=== PATIENT | male | born 1990 | race Asian ===

== ENCOUNTER 2016-09-25 12:10 | Emergency (ER) | payer OTHER ==
--- NOTE | 2016-09-25 12:40 | Emergency Department Report ---
Chief Complaint: Chest Pain Stated Complaint: CHEST PAIN Time Seen by Provider: 09/25/16 12:37 - HPI History of Present Illness: Patient is a 26 y/o male with h/o anxiety who presents due to chest pain x 6 days. Patient denies any SOB, he admits of having palpitations - ROS Review of Systems: no SOB - Exam Vital Signs: Vital Signs 09/25/16 12:17 Temperature 98 F Pulse Rate 97 H Respiratory 18 Rate Blood Pressure 129/88 O2 Sat by Pulse 100 Oximetry Physical Exam: NAD MSE screening note: Focused history and physical exam performed. Due to findings the following was ordered: ED Disposition for MSE Condition: Stable
--- NOTE | 2016-09-25 12:54 | XRay Report ---
ROUTINE CHEST, TWO VIEWS: HISTORY: chest pain. The trachea, heart, mediastinal contour, lung baird and bony thorax are unremarkable. IMPRESSION: Unremarkable chest x-ray.
[2016-09-25 13:10] LABS: Basophils % (Auto) 0.9 % (0.0-1.8); Eosinophils % (Auto) 0.3 % (0.0-4.3); Hematocrit 46.6 % (35.5-45.6); Hemoglobin 15.4 gm/dl (11.8-15.2); Mean Corpuscular HGB Conc 33 % (32-34); Mean Corpuscular Hemoglobin 28 pg (28-32); Mean Corpuscular Volume 84 fl (84-94); Platelet Count 246 K/mm3 (140-440); Red Blood Count 5.55 M/mm3 (3.65-5.03); Red Cell Distribution Width 14.7 % (13.2-15.2); White Blood Count 4.1 K/mm3 (4.5-11.0)
[2016-09-25 13:27] LABS: Creatine Kinase MB 1.3 ng/mL (0.0-4.0)
[2016-09-25 13:28] LABS: Alanine Aminotransferase 14 units/L (7-56); Albumin 4.4 g/dL (3.9-5); Albumin/Globulin Ratio 1.4 %; Alkaline Phosphatase 73 units/L (35-129); Anion Gap 18 mmol/L; BUN/Creatinine Ratio 18.75; Bilirubin,Total 1.1 mg/dL (0.1-1.2); Blood Urea Nitrogen 15 mg/dL (9-20); Calcium 9.3 mg/dL (8.4-10.2); Carbon Dioxide 27 mmol/L (22-30); Chloride 100.7 mmol/L (98-107); Creatine Kinase 64 units/L (55-170); Glucose 92 mg/dL (75-100); Lipase 152 units/L (13-60); Potassium 3.9 mmol/L (3.6-5.0); Sodium 142 mmol/L (137-145); Total Protein 7.6 g/dL (6.3-8.2)
--- NOTE | 2016-09-25 16:51 | Emergency Department Report ---
ED Chest Pain HPI - General Chief Complaint: Chest Pain Stated Complaint: CHEST PAIN Time Seen by Provider: 09/25/16 16:40 Source: patient Mode of arrival: Ambulatory Limitations: No Limitations - History of Present Illness Initial Comments: 26-year-old male presents to the emergency department complaining of chest pain. Patient reports left-sided chest pain that has been intermittent for the past 6 days. Patient describes a vague sensation in his chest that does not radiate. He reports associated palpitations, but denies shortness of breath, nausea, vomiting, diaphoresis, or dizziness. Patient reports a history of anxiety and states he takes Benadryl to help calm him down. He was concerned that the symptoms have been going on for several days longer than usual. At this time, the patient denies symptoms. There are no other complaints. MD Complaint: chest pain -: Gradual, days(s) (6) Onset: during rest Pain Location: left chest Pain Radiation: none Severity: mild Severity scale (0 -10): 2 Consistency: intermittent, now resolved Improves With: other (Benadryl) Worsens With: nothing re: denies: nausea, vomting, diaphoresis, dyspnea Other Symptoms: palpitations Treatments Prior to Arrival: none Aspirin use within the Past 7 Days: (0) No - Related Data Previous Rx's Medication Instructions Recorded Last Taken Type LORazepam [Ativan] 0.5 mg PO TID PRN #10 tablet 09/25/16 Unknown Rx Allergies Allergy/AdvReac Type Severity Reaction Status Date / Time No Known Allergies Allergy Unverified 09/25/16 12:22 KATERINE score - Katerine Score Age > 65: (0) No Aspirin use within the Past 7 Days: (0) No 3 or more CAD Risk Factors: (0) No 2 or more Angina events in past 24 hrs: (0) No Known CAD with more than 50% Stenosis: (0) No Elevated Cardiac Markers: (0) No ST Deviation Greater than 0.5mm: (0) No KATERINE Score: 0 ED Review of Systems ROS: Stated complaint: CHEST PAIN Other details as noted in HPI Comment: All other systems reviewed and negative Cardiovascular: chest pain, palpitations ED Past Medical Hx - Past Medical History Previous Medical History?: Yes Additional medical history: anxiety - Surgical History Past Surgical History?: No - Family History Family history: no significant - Social History Smoking Status: Never Smoker Substance Use Type: None - Medications Home Medications: Home Medications Medication Instructions Recorded Confirmed Last Taken Type LORazepam [Ativan] 0.5 mg PO TID PRN #10 tablet 09/25/16 Unknown Rx ED Physical Exam - General Limitations: No Limitations General appearance: alert, in no apparent distress - Head Head exam: Present: atraumatic, normocephalic - Eye Eye exam: Present: normal appearance, PERRL, EOMI - ENT ENT exam: Present: normal exam, normal orophraynx, mucous membranes moist - Neck Neck exam: Present: normal inspection, full ROM. Absent: tenderness - Respiratory Respiratory exam: Present: normal lung sounds bilaterally. Absent: respiratory distress, chest wall tenderness - Cardiovascular Cardiovascular Exam: Present: regular rate, normal rhythm, normal heart sounds - GI/Abdominal GI/Abdominal exam: Present: soft, normal bowel sounds. Absent: distended, tenderness - Extremities Exam Extremities exam: Present: normal inspection, full ROM. Absent: tenderness - Back Exam Back exam: Present: normal inspection, full ROM. Absent: tenderness - Neurological Exam Neurological exam: Present: alert, oriented X3. Absent: motor sensory deficit - Psychiatric Psychiatric exam: Present: normal affect, normal mood. Absent: homicidal ideation, suicidal ideation - Skin Skin exam: Present: warm, dry, intact ED Course Vital Signs 09/25/16 09/25/16 12:17 17:10 Temperature 98 F 99.2 F Pulse Rate 97 H 88 Respiratory 18 18 Rate Blood Pressure 129/88 Blood Pressure 136/74 [Left] O2 Sat by Pulse 100 100 Oximetry ED Medical Decision Making - Lab Data Result diagrams: 09/25/16 12:52 09/25/16 12:52 - EKG Data -: EKG Interpreted by [facility] EKG shows normal: sinus rhythm, axis, intervals, QRS complexes Rate: normal - EKG Data When compared to previous EKG there are: previous EKG unavailable Interpretation: nonspecific ST-T wave phil - Radiology Data Radiology results: report reviewed, image reviewed Chest x-ray shows no acute cardiopulmonary abnormality. - Medical Decision Making Lab and imaging results reviewed and discussed with the patient. Patient has an elevated lipase, but no abdominal tenderness on exam or symptoms suggestive of pancreatitis. Patient has had 2 negative troponins. He has remained asymptomatic in the emergency department. Patient will be discharged home at this time. - Differential Diagnosis atypical chest pain, anxiety, palpitations Critical care attestation.: If time is entered above; I have spent that time in minutes in the direct care of this critically ill patient, excluding procedure time. ED Disposition Clinical Impression: Non-cardiac chest pain, Anxiety Disposition: DISCHARGED TO HOME OR SELFCARE Is pt being admited?: No Condition: Stable Instructions: Anxiety (ED) Prescriptions: LORazepam [Ativan] 0.5 mg PO TID PRN #10 tablet PRN Reason: Anxiety Referrals: YOVANY HERRMANN MD [Primary Care Provider] - 3-5 Days Time of Disposition: 18:05
[2016-09-25 17:12] VITALS: BP 136/74
== END 2016-09-25 18:11 | disposition home or self-care (01) ==
LOC: ED 12:10
DX: R07.89 Other chest pain (principal); F41.9 Anxiety disorder, unspecified; R00.2 Palpitations
CPT/HCPCS: 36415; 71020; 80053; 82550; 82553; 83690; 84484; 85025; 93005; 93010